=== PATIENT | female | born 1955 | race Caucasian/White ===

== ENCOUNTER 2022-07-20 05:57 | Day surgery (SDC) | payer OTHER ==
[2022-07-20] VITALS (9 sets, daily range): BP systolic 96–130; BP diastolic 64–74
[~2022-07-20] VITALS: Ht 162.6 cm; Wt 101.0 kg
[2022-07-20] MEDS ORDERED: CARV6.25 (06:14)
[2022-07-20] MEDS ORDERED: CARV6.25 PO (06:15)
[2022-07-20] MEDS ORDERED: ATOR80 PO (06:15)
[2022-07-20] MEDS ORDERED: LEVOTHYROXINE75 MC9 PO (06:16)
[2022-07-20] MEDS ORDERED: METF500 PO (06:16)
[2022-07-20] MEDS ORDERED: Prozac40 MG PO (06:17)
--- NOTE | 2022-07-20 06:38 | NUR ---
Ambulatory in Day Surgery History, Chart, Medications and Allergies reviewed before start of procedure. Pre-Op teaching done. Pt verbalizes understanding. Patient States Post-Procedure ride home has been arranged.
[2022-07-20] MEDS ORDERED: OMEP20ER PO (06:51)
--- NOTE | 2022-07-20 09:11 | NUR ---
CALLED DR PAN OFFICE TO VERIFY MEDIPORT PLACEMENT FROM XRAY, SPOKE WITH PARKING LOT SUPERVISOR WHO THEN SPOKE WITH DR PAN. SHE STATED THAT DR PAN SAID "THE XRAY WAS FINE AND PT CAN BE DISCHARGED HOME"
--- NOTE | 2022-07-20 10:01 | NUR ---
Discharge instructions reviewed with patient. Patient verbalizes understanding. Copy given to patient to take home. Discharged via wheelchair to private car for ride home.
== END 2022-07-20 09:45 | disposition home or self-care (01) ==
LOC: ORSCMMR 05:57 → ORD 07:30 → ORSCMMR 09:45
PROVIDERS: Surgery
PROC: 0JH63WZ Insertion of Totally Implantable Vascular Access Device into Chest Subcutaneous Tissue and Fascia, Percutaneous Approach (ICD-10-PCS; principal; 2022-07-20 07:30)
DX: C50.411 Malignant neoplasm of upper-outer quadrant of right female breast (principal); K21.9 Gastro-esophageal reflux disease without esophagitis; E11.9 Type 2 diabetes mellitus without complications; E03.9 Hypothyroidism, unspecified; E78.00 Pure hypercholesterolemia, unspecified; Z79.84 Long term (current) use of oral hypoglycemic drugs; Z79.899 Other long term (current) drug therapy
CPT/HCPCS: 77001; C1788; J0690; J1642; J2250; J2704; J3010; J7120

== ENCOUNTER 2022-11-07 14:20 | Emergency (ER) | payer OTHER ==
[~2022-11-07] VITALS: Ht 160 cm; Wt 90.7 kg
[~2022-11-07 14:20] MED LIST: ATOR80 PO; CARV6.25; CARV6.25 PO; LEVOTHYROXINE75 MC9 PO; METF500 PO; OMEP20ER PO; Prozac40 MG PO
[2022-11-07 14:33] VITALS: BP 146/80
[2022-11-07] MEDS ORDERED: K-Dur10 MEQ PO (16:16)
== END 2022-11-07 16:30 | disposition home or self-care (01) ==
LOC: ER 14:20
DX: E87.6 Hypokalemia (principal); Z79.899 Other long term (current) drug therapy; Z79.84 Long term (current) use of oral hypoglycemic drugs; Z85.3 Personal history of malignant neoplasm of breast
CPT/HCPCS: 93005; 93010; 96360; 99283-25; A9270; J7120

== ENCOUNTER 2022-12-09 09:48 | Day surgery (SDC) | payer OTHER ==
[~2022-12-09 09:48] MED LIST changes: +K-Dur10 MEQ PO
[2022-12-15] MEDS ORDERED: OLAN2.5 PO (08:43)
== END 2022-12-21 23:16 | disposition home or self-care (01) ==
LOC: MOI US 09:48
DX: C50.411 Malignant neoplasm of upper-outer quadrant of right female breast (principal)
CPT/HCPCS: 19285; 77065; A4648